=== PATIENT | female | born 1980 | race Caucasian/White ===

== ENCOUNTER 2023-07-09 15:11 | Outpatient (AMB) | payer OTHER, SELFPAY ==
--- NOTE | 2023-07-09 15:28 | AM.OFFWIN_ITS ---
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 Intake Note: pt is here for left foot infection Patient Tobacco Use Status: Current everyday Tobacco user Allergies ibuprofen Allergy (Unknown, Verified 07/09/23 15:31) Unknown NSAIDS (Non-Steroidal Anti-Inflamma [NSAIDS (NON-STEROIDAL ANTI-INFLAMMA] Allergy (Unknown, Verified 07/09/23 15:31) UNKNOWN tramadol Allergy (Unknown, Verified 07/09/23 15:31) Unknown From ULTRAM Adverse Reaction (Unknown, Uncoded 01/04/20 15:18) STOMACH UPSET Do you need a note to return to daycare/school/sports/work: Yes HPI HPI Comments 2 History of Present Illness0 Details 42 y/o female patient who presents to [facility] today with c/o left foot abscess (between middle and 4th toes) that is oozing white fluid x 1 month. Pt was seen and evaluated by her Audio Visual Collections Coordinator ~ a month ago. Pod drained and sent Sample C&S. Per Pt nothing was found, no infection. But Pod prescribed Doxy x 14 days. Pt reports medicine did not work and believes the area is getting worse and painful. Pt has noticed white fluid draining out of the abscess. PFSH Social History Patient Tobacco Use Status: Current everyday Tobacco user Review of Systems Const All systems reviewed & are unremarkable except as noted in HPI and below Physical Exam Const General: comfortable and no acute distress Orientation/consciousness: patient oriented x3 Neuro General: patient oriented x3, gait normal and moves all extremities Extrem Left lower extremity: foot (Small abscess between middle and 5th fingers. Tender and red) Ankle/foot/toe images: 2 1. Small area red, tender to touch, filled with white discharge. Psych Speech and movement: Normal speech and movement present Assessment & Plan Assessment & Plan (1) Abscess of foot: Code(s): L02.619 - Cutaneous abscess of unspecified foot Plan: - No need for Additional Abx at this time (Pt just completed a course of Doxy a week ago). - Advised Pt to f/u with Pod - Wrapped the area with Kerlix roll. Coding Level of Care Code Est Pt Level 3 (63231) Diagnoses Abscess of foot L02.619 Time Spent (min) 15
== END 2023-07-09 16:37 | disposition home or self-care (01) ==
PROVIDERS: PCP Internal Medicine; Visit Provider Nurse Practitioner Family
DX: L02.619 Cutaneous abscess of unspecified foot (principal)
CPT/HCPCS: 99213